=== PATIENT | female | born 1980 | race Caucasian/White ===

== ENCOUNTER 2017-04-11 15:29 | Emergency (ER) | payer MEDICAID ==
[~2017-04-11] VITALS: Wt 71.0 kg
[~2017-04-11 15:29] MED LIST: ACET500C5 PO; AMO500 PO; FAMO-18 PO; METF500T4 PO; ONDA8TAB14 PO
[2017-04-11] MEDS ORDERED: ACETAMINOPHEN 500 MG TAB PO STA (16:28)
[2017-04-11] MEDS ORDERED: ONDANSETRON (ODT) 4 MG TAB ODT STA (16:28)
[2017-04-11 16:33] LABS: URINE BLOOD (Dip) POC Negative (NEGATIVE)
--- NOTE | 2017-04-11 16:46 | ERD ---
ER Documentation Chief Complaint Date/Time DATE: 04/11/17 TIME: 16:43 Chief Complaint VOMITING, THROAT PAIN, HEADACHE HPI This is a 36-year-old female presents emergency department for cough, sore throat, headache and posttussive vomiting. Patient has had a cough for the past 3 weeks. Patient states initially she had a productive cough with clear sputum and now in the past 3 days she had a dry nonproductive cough. Patient has sore throat however no difficulty swallowing or drooling. No muffled voice. Patient has had one episode of posttussive emesis. Nonbloody emesis. No diarrhea or constipation. Last bowel movement was 2 days ago. Patient has had tactile fevers at home however did not check her temperature. No dysuria, hematuria, urinary frequency or urinary urgency. No vaginal bleeding or vaginal discharge. ROS All systems reviewed and are negative except as per history of present illness. Medications Home Meds Active Scripts Guaifenesin* (Robitussin*) 100 Mg/5 Ml Syrup, 200 MG PO Q4H Y for COUGH, #240 ML Prov:ATILIO WOOD NP 04/11/17 Famotidine* (Pepcid*) 20 Mg Tablet, 20 MG PO BID for 30 Days, TAB Prov:ACE ANTONIO MD 09/27/16 Acetaminophen* (Tylophen*) 500 Mg Capsule, 1 CAP PO Q6H Y for PAIN AND OR ELEVATED TEMP, #15 CAP Prov:ACE ANTONIO MD 09/27/16 Amoxicillin* (Amoxicillin*) 500 Mg Cap, 500 MG PO TID for 10 Days, CAP Prov:ACE ANTONIO MD 09/27/16 Ondansetron (Ondansetron Odt) 8 Mg Tab.rapdis, 8 MG PO Q6H Y for NAUSEA AND/OR VOMITING, #8 TAB Prov:ACE ANTONIO MD 09/27/16 Reported Medications Metformin* (Glucophage*) 500 Mg Tab, 500 MG PO BID 04/22/13 Allergies Allergies: Coded Allergies: No Known Allergy (Verified , 01/05/14) PMhx/Soc History of Surgery: Yes (CSECTION) Anesthesia Reaction: No Hx Neurological Disorder: No Hx Respiratory Disorders: No Hx Cardiac Disorders: No Hx Psychiatric Problems: No Hx Miscellaneous Medical Probl: Yes (DIABETES ) Hx Alcohol Use: No Hx Substance Use: No Hx Tobacco Use: No Smoking Status: Never smoker Physical Exam Vitals Vital Signs Date Time Temp Pulse Resp B/P Pulse Ox O2 Delivery O2 Flow Rate FiO2 04/11/17 18:10 98.2 89 18 103/69 100 Room Air 04/11/17 15:30 100.8 117 18 107/72 100 Physical Exam Const: No acute distress, alert Head: Atraumatic Eyes: Normal Conjunctiva ENT: Normal External Ears, Nose and Mouth. No erythema or exudate posterior pharynx. No peritonsillar abscess. Uvula is midline. No kissing tonsils. TMs normal bilaterally. Neck: Full range of motion..~ No meningismus. Resp: Clear to auscultation bilaterally. No wheezing, rhonchi or crackles. No stridor or labored breathing. Patient is talking in complete sentences. Cardio: Regular rate and rhythm, no murmurs Abd: Soft, non tender, non distended. Normal bowel sounds Skin: No petechiae or rashes Back: No midline or flank tenderness Ext: No cyanosis, or edema Neur: Awake and alert Psych: Normal Mood and Affect Results 24 hrs Laboratory Tests Test 04/11/17 16:36 Bedside Urine pH (LAB) 6.0 Bedside Urine Protein (LAB) Negative Bedside Urine Glucose (UA) 0.50% Bedside Urine Ketones (LAB) 1+ Bedside Urine Blood Negative Bedside Urine Nitrite (LAB) Negative Bedside Urine Leukocyte Esterase (L Negative Current Medications Medications (Trade) Dose Ordered Sig/Tamiko Route PRN Reason Start Time Stop Time Status Last Admin Dose Admin Acetaminophen (Tylenol Tab) 500 mg ONCE STAT PO 04/11/17 16:28 04/11/17 16:29 DC 04/11/17 16:31 Ondansetron HCl (Zofran Odt) 4 mg ONCE STAT ODT 04/11/17 16:28 04/11/17 16:29 DC 04/11/17 16:31 Procedures/MDM Patient: BRANDEE COBURN : 1980 Age: 36 Sex: F MR #: [id number] DOS: 04/11/17 1628 Ordering MD: ATILIO WOOD NP Location: [facility] Room/Bed: PROCEDURE: XR Chest. CLINICAL INDICATION: chest pain, cough TECHNIQUE: Single frontal view of the chest was obtained COMPARISON: None FINDINGS: The heart and mediastinum are within normal limits. The lungs are clear. There is no pleural effusion or pneumothorax. RPTAT: AA IMPRESSION: No acute disease. MDM: 36-year-old female presents emergency department for cough, sore throat, headache and posttussive emesis. Patient has had a cough for the past 3 weeks. Developed posttussive emesis for the past 3 days. Also developed sore throat. No difficulty swallowing or drooling. No muffled voice. Patient is talking complete sentences. Physical exam is overall unremarkable. Due to patient's cough for 3 weeks and posttussive emesis a chest x-ray was ordered. Patient also had temp of 100.8F upon arrival to ED with tachycardia of 117 bpm. Patient denies chest pain, sore throat or difficulty breathing. No signs or symptoms of respiratory distress. Chest x-ray reviewed by radiologist as no acute disease. Urine dip is negative for infection. Urine is negative. Patient given Tylenol and Zofran while in the ED. no active vomiting while in ED. Fever reduced. Low suspicion for pneumonia, pleural effusion, pneumothorax or acute MD. Differential diagnosis includes but not limited to URI, influenza, otitis media , otitis externa, asthma exacerbation, croup, bronchitis, bronchiolitis and costochondritis. Patient is appropriate for outpatient management and will be given prescription for Robitussin. Instructed patient to follow-up with primary care provider in the next 2-3 days for reassessment and additional management. Return to ED for any high fever, chest pain, difficulty breathing, shortness breath, wheezing, vomiting, diarrhea, abdominal pain or any new or worsening symptoms. Patient verbalizes understanding. All questions answered at discharge. Departure Diagnosis: Primary Impression: URI (upper respiratory infection) URI type: unspecified viral URI Qualified Code: J06.9 - Viral upper respiratory tract infection Condition: Stable ATILIO WOOD NP Apr 11, 2017 16:46
--- NOTE | 2017-04-11 16:54 | RADRPT ---
PROCEDURE: XR Chest. CLINICAL INDICATION: chest pain, cough TECHNIQUE: Single frontal view of the chest was obtained COMPARISON: None FINDINGS: The heart and mediastinum are within normal limits. The lungs are clear. There is no pleural effusion or pneumothorax. RPTAT: AA IMPRESSION: No acute disease. .Julien Go MD, MD Date Time Electronically viewed and signed by .Julien Go MD, on 04/11/2017 16:54 .S/
[2017-04-11] MEDS ORDERED: GUAI-637 PO (18:02)
[2017-04-11 18:10] VITALS: BP 103/69; PULSE 89; RESP 18; TEMP 98.2
== END 2017-04-11 18:11 | disposition home or self-care (01) ==
LOC: FTE 15:29
DX: J06.9 Acute upper respiratory infection, unspecified (principal); E11.9 Type 2 diabetes mellitus without complications; Z79.84 Long term (current) use of oral hypoglycemic drugs
CPT/HCPCS: 71010; 81003; Z7610

== ENCOUNTER 2018-04-08 12:25 | Emergency (ER) | END 2018-04-08 15:20 | disposition home or self-care (01) ==

== ENCOUNTER 2018-07-14 20:27 | Outpatient (CLI) | END 2018-07-15 08:20 | disposition home or self-care (01) ==

== ENCOUNTER 2018-09-09 08:44 | Inpatient (IN) | END 2018-09-12 16:00 | disposition home or self-care (01) | DRG 785 ==

== ENCOUNTER 2018-09-22 14:53 | Emergency (ER) | END 2018-09-22 17:25 | disposition home or self-care (01) ==